=== PATIENT | male | born 1960 | race Caucasian/White ===

== ENCOUNTER 2018-12-24 13:15 | Outpatient (REF) | payer BC, SELFPAY ==
[2018-12-24 21:38] LABS: Anion Gap 9.1 mmol/L (3-11); BUN 14 mg/dL (7-18); CO2 25.9 mmol/L (21.0-32.0); Chloride 107 mmol/L (98-107); Glucose 90 mg/dL (70-100); Potassium 3.9 mmol/L (3.5-5.1); Sodium 142 mmol/L (136-145)
== END 2018-12-24 13:35 ==
LOC: NCHCN 13:15
PROVIDERS: PCP Family Medicine; Visit Provider Family Medicine
DX: I10 Essential (primary) hypertension (principal); E78.5 Hyperlipidemia, unspecified; F17.209 Nicotine dependence, unspecified, with unspecified nicotine-induced disorders
CPT/HCPCS: 80048

== ENCOUNTER → 2020-03-06 20:50 | Outpatient (REF) | payer OTHER, SELFPAY ==
[2020-03-06 21:34] LABS: Anion Gap 9.9 mmol/L (3-11); BUN 14 mg/dL (7-18); CO2 27.1 mmol/L (21.0-32.0); CREATININE 1.21 mg/dL (0.70-1.30); Chloride 104 mmol/L (98-107); Glucose 84 mg/dL (74-106); Potassium 3.4 mmol/L (3.5-5.1); Sodium 141 mmol/L (136-145)
== END ==
LOC: NCHCN 20:50
PROVIDERS: PCP Family Medicine; Visit Provider Family Medicine
DX: E78.5 Hyperlipidemia, unspecified (principal); I10 Essential (primary) hypertension
CPT/HCPCS: 80048

== ENCOUNTER 2021-10-18 20:52 | Outpatient (REF) | payer OTHER, SELFPAY ==
[2021-10-18 16:15] LABS: Anion Gap 10.5 mmol/L (3-11); BUN 20 mg/dL (7-18); CO2 24.5 mmol/L (21.0-32.0); CREATININE 1.2 mg/dL (0.70-1.30); Calcium 9.2 mg/dL (8.5-10.1); Calculated LDL 125 mg/dL (<100); Chloride 104 mmol/L (98-107); Cholesterol 192 mg/dL (<200); Glucose 98 mg/dL (74-106); HDL Cholesterol 48 mg/dL (40-60); Potassium 4.1 mmol/L (3.5-5.1); Sodium 139 mmol/L (136-145); Triglyceride 96 mg/dL (<150)
== END 2021-10-18 20:53 | disposition home or self-care (01) ==
LOC: NCHCN 20:52
PROVIDERS: PCP Family Medicine; Visit Provider Family Medicine
DX: Z00.00 Encounter for general adult medical examination without abnormal findings (principal); I10 Essential (primary) hypertension
CPT/HCPCS: 80048; 80061

== ENCOUNTER 2022-10-24 08:05 | Outpatient (REF) | payer BC, SELFPAY ==
[2022-10-23 17:33] LABS: Anion Gap 10.4 mmol/L (3-11); BUN 18 mg/dL (7-18); CO2 22.6 mmol/L (21.0-32.0); CREATININE 1.3 mg/dL (0.70-1.30); Calculated LDL 116 mg/dL (<100); Chloride 110 mmol/L (98-107); Cholesterol 178 mg/dL (<200); Estimated GFR 61.35 (mL/min/1.73m2); Glucose 89 mg/dL (74-106); HDL Cholesterol 44 mg/dL (40-60); Potassium 4.3 mmol/L (3.5-5.1); Sodium 143 mmol/L (136-145); Triglyceride 92 mg/dL (<150)
== END 2022-10-24 08:06 | disposition home or self-care (01) ==
LOC: NCHCN 08:05
PROVIDERS: PCP Family Medicine; Visit Provider Family Medicine
DX: Z00.00 Encounter for general adult medical examination without abnormal findings (principal); E78.5 Hyperlipidemia, unspecified; I10 Essential (primary) hypertension
CPT/HCPCS: 80048; 80061

== ENCOUNTER 2023-10-19 08:47 | Outpatient (REF) | payer SELFPAY ==
--- OUTSIDE RECORDS SUMMARY | 2023-10-19 08:51 | XMS_ITS ---
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 Code Code System Body Mass Index 24.28 kg/m2 10/03/2022 07:15 Initial 99781 -5 LOINC Systolic Blood Pressure 135 mm[Hg] 10/03/2022 08:22 Most Recent 8480- 6 LOINC Diastolic Blood Pressure 76 mm[Hg] 10/03/2022 08:22 Most Recent 8462- 4 LOINC Systolic Blood Pressure 142 mm[Hg] 10/03/2022 07:15 Initial 8480- 6 LOINC Diastolic Blood Pressure 76 mm[Hg] 10/03/2022 07:15 Initial 8462- 4 LOINC Body Surface Area 1.82 m2 10/03/2022 07:15 Initial 3140- 1 LOINC Height 170.180 0 cm 67.00 in 10/03/2022 07:15 Initial 8302- 2 LOINC O2 Saturation 99 % 2022 08:22 Most Recent 49681 -5 LOINC O2 Saturation 96 % 2022 07:15 Initial 72517 -5 LOINC Pulse 86.0 /min 10/03/2022 08:22 Most Recent 8867- 4 LOINC Pulse 84.0 /min 10/03/2022 07:15 Initial 8867- 4 LOINC Respiration 16 /min 10/04/19 07:15 Initial 9279- 1 LOINC Temperature 35.9 Lynne 96.6 F 10/04/19 23 07:15 Initial 8310- 5 [facility] Weight 70.31 kg 155.00 lbs 10/03/2022 07:15 Initial 24820 -7 [facility] Medications Medication Start Date End Date Route Frequency Dose Code Code System Medication Instructions Home Meds Cyclobenzaprine HCl 10MG Oral Tablet 10/03/2022 10/30/2022 ORAL NEEDED EVERY 8 HOURS 1 TABLET 257605 RxNorm TAKE 1 TABLET ORAL NEEDED EVERY 8 HOURS Assessment You had the following problems:HTN Hospital Discharge Instructions Should you have any questions prior to discharge, please contact a member of your healthcare team. If you have left the hospital and have any questions, please contact your primary care physician. Reason For Referral No Data Found Problems Problem Start Date Resolved Date Status Code Code System HTN active [id number] SNOMED-CT Allergies and Adverse Reactions Allergy Substance Reaction Severity Start Date Concern Status Co de Code System No Known Drug Allergies Active 260400113 SNOMED-CT Plan of Treatment No Data Found Encounters Encounter Diagnosis Start Date Code Code Sys tem Low back pain, unspecified 10/03/2022 S NOMED-CT Personal Care Team Section Performer Name Performer Role Active Date Inactive Da te
[2023-10-19 14:51] LABS: Anion Gap 7.7 mmol/L (3-11); BUN 15 mg/dL (7-18); CO2 30.3 mmol/L (21.0-32.0); CREATININE 1.1 mg/dL (0.70-1.30); Calcium 9.4 mg/dL (8.5-10.1); Calculated LDL 119 mg/dL (<100); Chloride 107 mmol/L (98-107); Cholesterol 185 mg/dL (<200); Glucose 107 mg/dL (74-106); HDL Cholesterol 43 mg/dL (40-60); Potassium 4.7 mmol/L (3.5-5.1); Sodium 145 mmol/L (136-145); Triglyceride 118 mg/dL (<150)
== END 2023-10-19 08:48 | disposition home or self-care (01) ==
LOC: NCHCN 08:47
PROVIDERS: PCP Family Medicine; Visit Provider Family Medicine
DX: E78.5 Hyperlipidemia, unspecified (principal); I10 Essential (primary) hypertension
CPT/HCPCS: 80048; 80061

== ENCOUNTER 2024-10-11 17:21 | Outpatient (REF) | payer MEDICARE, SELFPAY ==
[2024-10-11 16:34] LABS: Anion Gap 9.6 mmol/L (3-11); BUN 21 mg/dL (7-18); CO2 26.4 mmol/L (21.0-32.0); Calcium 9.6 mg/dL (8.5-10.1); Calculated LDL 132 mg/dL (<100); Chloride 106 mmol/L (98-107); Cholesterol 189 mg/dL (<200); Estimated GFR 66.70 (mL/min/1.73m2); Glucose 104 mg/dL (74-106); HDL Cholesterol 40 mg/dL (>or=40); Hemoglobin A1C 5.5 % (<5.7); Potassium 4.4 mmol/L (3.5-5.1); Sodium 142 mmol/L (136-145); Triglyceride 85 mg/dL (<150)
== END 2024-10-11 17:22 | disposition home or self-care (01) ==
LOC: NCHCN 17:21
PROVIDERS: PCP Family Medicine; Visit Provider Family Medicine
DX: E78.5 Hyperlipidemia, unspecified (principal); R73.01 Impaired fasting glucose
CPT/HCPCS: 80048; 80061; 83036